=== PATIENT | male | born 1970 | race African-American/Black ===

== ENCOUNTER 2020-02-13 15:03 | Emergency (ER) | payer MEDICAID ==
[~2020-02-13] VITALS: Ht 170.2 cm; Wt 74.0 kg
[~2020-02-13 15:03] MED LIST: IBUP100T53
[2020-02-13] MEDS ORDERED: KETOROLAC 30MG/ML VIAL IM ONE (16:45)
[2020-02-13] MEDS ORDERED: HYDROCODONE/ACETAMINOPHEN 5/325MG TABLET PO ONE (18:00)
[2020-02-13 18:57] LABS: CLARITY URINE CLOUDY (CLEAR); COLOR URINE DARK YELLOW (YELLOW); KETONES URINE TRACE (NEGATIVE); LEUKOCYTE ESTERASE URINE TRACE (NEGATIVE); NITRITE URINE NEGATIVE (NEGATIVE); OCCULT BLOOD URINE NEGATIVE (NEGATIVE); PH URINE 6.5 (4.5-8.0); PROTEIN URINE TRACE (NEGATIVE); SPECIFIC GRAVITY URINE 1.029 (1.005-1.030)
[2020-02-13 19:17] LABS: *AMPHETAMINES SCREEN URINE NEGATIVE (NEGATIVE); *BARBITURATES SCREEN URINE NEGATIVE (NEGATIVE); *BENZODIAZEPINES SCREEN URINE NEGATIVE (NEGATIVE); *COCAINE SCREEN URINE NEGATIVE (NEGATIVE); METHADONE URINE SCREEN NEGATIVE (NEGATIVE); OPIATES URINE SCREEN NEGATIVE (NEGATIVE)
[2020-02-13 19:18] LABS: CANNABINOID URINE SCREEN PRESUMTIVE POSITIVE (NEGATIVE); PHENCYCLIDINE URINE SCREEN NEGATIVE (NEGATIVE)
[2020-02-13 20:06] VITALS: BP 117/64
== END 2020-02-13 20:07 | disposition home or self-care (01) ==
LOC: ER 15:03
DX: N39.0 Urinary tract infection, site not specified (principal); M25.551 Pain in right hip; M25.552 Pain in left hip; E78.00 Pure hypercholesterolemia, unspecified
CPT/HCPCS: 72192; 73521; 80305; 81003; 96372; 99285; J1885

== ENCOUNTER 2020-10-05 12:44 | Emergency (ER) | payer MEDICARE, MEDICAID ==
[~2020-10-05] VITALS: Ht 172.7 cm; Wt 75.0 kg
[2020-10-05] MEDS ORDERED: IBUPROFEN 600MG TABLET PO ONE (14:15)
[2020-10-05] MEDS ORDERED: DIPHENHYDRAMINE 25MG CAPSULE PO ONE (14:15)
[2020-10-05] MEDS ORDERED: PREDNISONE 20MG TABLET PO ONE (14:15)
[2020-10-05 15:31] VITALS: BP 112/61
== END 2020-10-05 15:32 | disposition home or self-care (01) ==
LOC: ER 12:44
DX: T38.0X5A Adverse effect of glucocorticoids and synthetic analogues, initial encounter (principal); T45.0X5A Adverse effect of antiallergic and antiemetic drugs, initial encounter; G89.29 Other chronic pain; M25.551 Pain in right hip; E78.00 Pure hypercholesterolemia, unspecified; F17.200 Nicotine dependence, unspecified, uncomplicated; Z87.440 Personal history of urinary (tract) infections; Y92.89 Other specified places as the place of occurrence of the external cause
CPT/HCPCS: 99284; J7512; Q0163